=== PATIENT | female | born 2000 | race Caucasian/White ===

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

== ENCOUNTER 2019-05-29 09:36 | Emergency (ER) | payer BC ==
[~2019-05-29] VITALS: Ht 160 cm; Wt 60.4 kg
[~2019-05-29 09:36] MED LIST changes: +CEPH-443 PO; +HYDR-4011 PO; -HYDR-906 PO; -IBUP200C11 PO; -IBUP800T25 PO; +IBUP800T48 PO
[2019-05-29 09:39] VITALS: BP 108/67; PULSE 86; RESP 18; Ht 160 cm; Wt 60.4 kg
[2019-05-29] MEDS ORDERED: IBUPROFEN 600 MG TAB PO ONE (10:00)
[2019-05-29] MEDS ORDERED: CEPHALEXIN 500 MG CAP PO ONE (10:00)
[2019-05-29] MEDS ORDERED: MUPIROCIN 2% 22 GM OINT TOP ONE (10:00)
== END 2019-05-29 09:59 | disposition home or self-care (01) ==
LOC: E/R 09:36
DX: T63.481A Toxic effect of venom of other arthropod, accidental (unintentional), initial encounter (principal)
CPT/HCPCS: 99283